=== PATIENT | female | born 1965 | race Caucasian/White ===

== ENCOUNTER → 2017-02-21 | Outpatient (CLI) | payer BC | LOC: M LAB 08:35 | PROVIDERS: ATTEND Ophthalmology | DX: Z01.818 Encounter for other preprocedural examination (principal); H02.62 Xanthelasma of right lower eyelid; H02.65 Xanthelasma of left lower eyelid ==

== ENCOUNTER → 2017-03-18 | Day surgery (SDC) | payer BC ==
--- NOTE | 2017-03-17 06:58 | HPE ---
DATE OF ADMISSION: 03/18/2017 HISTORY AND CHIEF COMPLAINT: Mrs. 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 On 12/26/2015, she had the xanthelasma removed from the left lower eyelid successfully. There has been recurrence of the xanthelasma in the left lower eyelid and new xanthelasma deposits on the right lower eyelid. She is being admitted to have the xanthelasma excised from both lower eyelids under local anesthetic with monitored sedation. PAST OCULAR HISTORY: Please see the history of present illness. Dry eye syndrome both eyes, ocular hypertension, corticosteroid responder. PAST MEDICAL HISTORY/PREOPERATIVE MEDICAL EVALUATION AND ASSESSMENT: Please see the report by Dr. Morales Villanueva. The patient was placed on low-dose statin medication to decrease the deposition of the cholesterol, which is forming the xanthelasma on the lower eyelids. MEDICATIONS: - Lipitor 10 mg daily - Epipen two pack as needed for anaphylaxis ALLERGIES: Please refer to the report by Dr. Morales Villanueva. NO KNOWN DRUG ALLERGIES. Allergic to TREE NUTS, which causes throat edema and itching. SOCIAL HISTORY: Nonsmoker. FAMILY HISTORY: Noncontributory with respect to eye disease. On examination, vision without correction: Right eye: 20/20 -1, left eye: 20/20. Intraocular pressure by Goldmann tonometry: Both eyes: 16 mmHg. External examination: Right eye: Xanthelasma deposit of lower eyelid medially measuring 25 x 6 mm in size, left eye: Xanthelasma of lower eyelid medially, two locations, smaller location medial lower eyelid 5.5 x 7 mm, larger location inferior central and medial lower eyelid 26 x 6 mm in size. Extraocular movements: Both eyes: Full, pupils: Both eyes: Round, regular and reactive to light. Slit lamp examination: Cornea: Both eyes: 1+ superficial punctate keratitis. Anterior chamber: Both eyes: Normal. Lens: Both eyes: Normal. IMPRESSION: 1. Xanthelasma of lower eyelids both eyes. 2. Recurrent xanthelasma left lower eyelid. 3. New xanthelasma right lower eyelid. PLAN: I discussed the findings with Mrs. David. As previous, I recommended excision of the xanthelasma of both lower eyelids. I discussed the procedure, benefit, expected outcomes, risks and alternatives to surgery. I mentioned that the risk of surgery includes but is not limited to surgery is not guaranteed, bleeding, infection, inflammation,, scarring, recurrence, lid malposition, injury to the globe or the orbit causing impaired vision and extraocular movements. Mrs. David elected to have the said surgery performed. I obtained an informed consent. I advised her to stop any aspirin type products or nonsteroidal anti-inflammatory medications [address] Morales Villanueva will recommend any other preoperative and postoperative medications. JOSE
[~2017-03-18] VITALS: Ht 170.2 cm; Wt 79.4 kg
[~2017-03-18] MED LIST: ACETAMINOPHEN TAB 650MG DOSE (2X325MG) PO PRN; ATOR1TAB19 PO; BENA25CA4 PO; BUPIVACAINE 0.75% 10 ML VIAL As Ordered ONE; CIPROFLOXACIN 0.3% OPHTH OINTMENT As Ordered ONE; D5W/0.2% SODIUM CHLORIDE 1,000 ML IV ONE; D5W/0.2% SODIUM CHLORIDE 250 ML IV ONE; EPIP0.3I2 IM; HYALURONIDASE 200 UNITS/ML VIAL (J3470) As Ordered ONE; IBUP200C PO; LIDOCAINE 2% INJ 100 MG/5 ML SDV (FOR ANES.) As Ordered ONE; LIDOCAINE W/EPINEPHRINE 1% 20ML VIAL As Ordered ONE; MIDAZOLAM INJ 2 MG/2 ML VIAL (J2250) As Ordered ONE; ONDANSETRON 4MG/2ML VIAL (J2405) As Ordered ONE; POVIDONE-IODINE 5% OPHTH PREP SOL 30ML As Ordered ONE; PROPOFOL 200 MG/20 ML VIAL As Ordered ONE; TOBRADEX OPHTH OINT 3.5 GM As Ordered ONE; dexameTHASONE 4 MG/ML 1ML VIAL (J1100) IV ONE; fentaNYL 100 MCG/2 ML INJECTION (J3010) As Ordered ONE
[2017-03-18 11:20] VITALS: BP 134/79
--- NOTE | 2017-03-18 11:46 | RO ---
DATE OF PROCEDURE: 03/18/2017 PREOPERATIVE DIAGNOSIS: Xanthelasma of both lower eyelids, right lower lid lesion measures 25 x 6 mm, left lower eyelid has two lesions, the first lesion medially measures 5.5 x 7 mm in size and the second lesion more centrally measures 26 x 6 mm in size. POSTOPERATIVE DIAGNOSIS: Xanthelasma of both lower eyelids, right lower lid lesion measures 25 x 6 mm, left lower eyelid has two lesions, the first lesion medially measures 5.5 x 7 mm in size and the second lesion more centrally measures 26 x 6 mm in size. OPERATIVE PROCEDURE: 1. Excision of xanthelasma both lower eyelids. 2. Closure of wound using intermediate two-layer closure of both lower eyelids. SURGEON: Dandre Davis MD SILK SCREEN PROCESSOR: ANESTHESIA: Local with monitored sedation. DESCRIPTION OF PROCEDURE: The patient was brought into the operating room and positioned appropriately. A surgical marking pen was used to britney an incision line around the xanthelasma lesions of the right lower eyelid and the left lower eyelid. Local anesthetic consisting of Xylocaine 1% mixed 50/50 with Marcaine 0.75% with epinephrine 1:200,000 and 200 units of Vitrase per 10 mL of local anesthetic, 2.75 mL total was injected subcutaneously at the base of each of the xanthelasma lesions of both lower eyelids. The full face was prepped with Betadine and draped in the usual sterile manner. The skin incision was made with a #15 blade. Good hemostasis was ensured throughout the procedure using bipolar cautery. Sharp and blunt dissection was performed to remove the xanthelasma lesions. The subcutaneous layer was dissected 360 degrees around the incision sites of both lower eyelids. The orbicularis layer of all the site was closed using inverted interrupted #6-0 Vicryl suture. The skin incisions were closed using interrupted #6-0 nylon suture. There were no complications during the surgery. A combination of Ciloxan ophthalmic ointment and TobraDex ophthalmic ointment was applied to the incisions and the sutures. Cold saline compresses were placed over both eyes. There are no complications during the surgery. Specimens were sent to pathology. The patient left the recovery room in good condition. JOSE
== END | disposition home or self-care (01) ==
LOC: M SDC 07:54
PROVIDERS: ATTEND Ophthalmology
DX: H02.62 Xanthelasma of right lower eyelid (principal); E78.00 Pure hypercholesterolemia, unspecified; R29.898 Other symptoms and signs involving the musculoskeletal system; Z91.09 Other allergy status, other than to drugs and biological substances; Z79.899 Other long term (current) drug therapy; Z90.710 Acquired absence of both cervix and uterus
CPT/HCPCS: 12055; 67840; 88302; J1100; J2250; J2405; J3010; J3470

== ENCOUNTER → 2017-09-03 | Outpatient (CLI) | payer BC ==
[~2017-09-03] MED LIST changes: -ACETAMINOPHEN TAB 650MG DOSE (2X325MG) PO PRN; -BUPIVACAINE 0.75% 10 ML VIAL As Ordered ONE; -CIPROFLOXACIN 0.3% OPHTH OINTMENT As Ordered ONE; -D5W/0.2% SODIUM CHLORIDE 1,000 ML IV ONE; -D5W/0.2% SODIUM CHLORIDE 250 ML IV ONE; -HYALURONIDASE 200 UNITS/ML VIAL (J3470) As Ordered ONE; -IBUP200C PO; +IBUP200C10 PO; -LIDOCAINE 2% INJ 100 MG/5 ML SDV (FOR ANES.) As Ordered ONE; -LIDOCAINE W/EPINEPHRINE 1% 20ML VIAL As Ordered ONE; -MIDAZOLAM INJ 2 MG/2 ML VIAL (J2250) As Ordered ONE; -ONDANSETRON 4MG/2ML VIAL (J2405) As Ordered ONE; -POVIDONE-IODINE 5% OPHTH PREP SOL 30ML As Ordered ONE; -PROPOFOL 200 MG/20 ML VIAL As Ordered ONE; -TOBRADEX OPHTH OINT 3.5 GM As Ordered ONE; -dexameTHASONE 4 MG/ML 1ML VIAL (J1100) IV ONE; -fentaNYL 100 MCG/2 ML INJECTION (J3010) As Ordered ONE
--- NOTE | 2017-09-03 09:57 | REPMRS ---
Patient History The patient states she had a clinical breast exam in May 2017.No known family history of cancer. Digital Mammo Screening Bilat: September 03, 2017 - Exam #: [id number] Bilateral CC and MLO view(s) were taken. Technologist: Vianey Saleh Technologist Prior study comparison: August 30, 2016, bilateral digital mammo screening bilat performed at [facility]. August 25, 2015, bilateral digital mammo screening bilat performed at [facility]. FINDINGS: The breast tissue is heterogeneously dense. This may lower the sensitivity of mammography. There has been no change in the appearance of the mammogram from the prior studies. There is a moderate amount of residual fibroglandular tissue which is fairly symmetric. There is no interval development of dominant mass, areas of architectural distortion, or clustered microcalcification typical of malignancy. ASSESSMENT: BI-RADS/ACR category 1 mammogram. Negative. Recommendation Routine screening mammogram in 1 year (for women over age 40). This mammogram was interpreted with the aid of an FDA-approved computer-aided dectection system. Electronically Signed By: Renato Cruz MD 09/03/17 0957
== END ==
LOC: M RAD 08:45
PROVIDERS: ATTEND Family Medicine
DX: Z12.31 Encounter for screening mammogram for malignant neoplasm of breast (principal); R92.8 Other abnormal and inconclusive findings on diagnostic imaging of breast

== ENCOUNTER → 2018-09-09 | Outpatient (CLI) | payer BC | LOC: M RAD 07:46 | DX: Z12.31 Encounter for screening mammogram for malignant neoplasm of breast (principal) | CPT/HCPCS: 77067 ==

== ENCOUNTER → 2018-09-29 | Outpatient (REF) | payer BC ==
[~2018-09-29] MED LIST changes: -IBUP200C10 PO; +IBUP200C25 PO
[2018-10-02 14:15] LABS: PHOSPHOLIPIDS LEVEL 223 mg/dL (150-250); SSA SJOGRENS A <0.2 AI (0.0-0.9); SSB SJOGRENS B <0.2 AI (0.0-0.9)
== END ==
LOC: M LAB REF 16:44
PROVIDERS: ATTEND Family Medicine
DX: H01.132 Eczematous dermatitis of right lower eyelid (principal)

== ENCOUNTER → 2019-09-14 | Outpatient (CLI) | payer BC ==
--- NOTE | 2019-09-14 10:23 | REPMRS ---
Patient History The patient states she had a clinical breast exam in 2018. No known family history of cancer. 3D TOMOSYNTHESIS WAS PERFORMED. The [employer] lifetime risk for breast cancer is 7.7%. Digital Mammo Screening Bilat: September 14, 2019 - Exam #: [id number] Bilateral CC and MLO view(s) were taken. Technologist: Mini Gruber, Technologist Prior study comparison: September 09, 2018, bilateral digital mammo screening bilat performed at [facility]. September 03, 2017, bilateral digital mammo screening bilat performed at [facility]. FINDINGS: The breast tissue is heterogeneously dense. This may lower the sensitivity of mammography. There has been no change in the appearance of the mammogram from the prior studies. There is a moderate amount of residual fibroglandular tissue which is fairly symmetric. There is no interval development of dominant mass, areas of architectural distortion, or clustered microcalcification typical of malignancy. Assessment: BI-RADS/ACR category 1 mammogram. Negative Mammogram. Recommendation Routine screening mammogram in 1 year (for women over age 40). This mammogram was interpreted with the aid of an FDA-approved computer-aided dectection system. Electronically Signed By: Renato Cruz MD 09/14/19 7022
== END ==
LOC: M RAD 09:39
PROVIDERS: ATTEND Family Medicine
DX: Z12.31 Encounter for screening mammogram for malignant neoplasm of breast (principal)

== ENCOUNTER → 2020-10-10 | Outpatient (CLI) | payer BC ==
--- NOTE | 2020-10-10 08:50 | REPMRS ---
Patient History The patient states she has not had a clinical breast exam in over a year. Family history of breast cancer at age 56 in sister. Digital Woman Screen Mammo: October 10, 2020 - Exam #: [id number] Bilateral CC and MLO view(s) were taken. Technologist: Macy Lei, Technologist Prior study comparison: September 14, 2019, bilateral digital mammo screening bilat, performed at [facility]. September 09, 2018, bilateral digital mammo screening bilat, performed at [facility]. September 03, 2017, bilateral digital mammo screening bilat, performed at [facility]. FINDINGS: The breast tissue is heterogeneously dense. This may lower the sensitivity of mammography. The Volpara volumetric breast density category is: C. There is a moderate amount of heterogeneously dense fibroglandular tissue which is fairly symmetric. There is no interval development of dominant mass, architectural distortion, or grouped microcalcification typical of malignancy. There has been no change in the appearance of the mammogram from the prior studies. 3-D tomosynthesis shows no additional findings. Assessment: BI-RADS/ACR category 1 mammogram. Negative Mammogram. Recommendation Routine screening mammogram of both breasts in 1 year (for women over age 40). This patient's [facility] Lifetime Breast Cancer RIsk is estimated at 14.8 %. This mammogram was interpreted with the aid of an FDA-approved computer-aided dectection system. Electronically Signed By: Ruben Garcia MD 10/10/20 0850
== END ==
LOC: M WHC 07:51
PROVIDERS: ATTEND Family Medicine
DX: Z12.31 Encounter for screening mammogram for malignant neoplasm of breast (principal)

== ENCOUNTER → 2021-10-11 | Outpatient (CLI) | payer BC ==
--- NOTE | 2021-10-11 14:24 | REPMRS ---
Patient History The patient states she had a clinical breast exam in May 2021. Family history of breast cancer at age 56 in sister. Tomosynthesis is performed. Volpara breast density is c. [employer] lifetime risk of breast cancer 14.5%. Patient states no breast complaints today. Patient has signed MRS History Sheet. Digital Woman Screen Mammo: October 11, 2021 - Exam #: [id number] Bilateral CC and MLO view(s) were taken. Technologist: Macy Lei, Technologist Prior study comparison: October 10, 2020, bilateral digital woman screen mammo performed at [facility]. September 14, 2019, bilateral digital mammo screening bilat, performed at [facility]. FINDINGS: The breast tissue is heterogeneously dense. This may lower the sensitivity of mammography. There has been no change in the appearance of the mammogram from the prior studies. There is a moderate amount of residual fibroglandular tissue which is fairly symmetric. There is no interval development of dominant mass, areas of architectural distortion, or clustered microcalcification typical of malignancy. Assessment: BI-RADS/ACR category 1 mammogram. Negative Mammogram. Recommendation Routine screening mammogram in 1 year (for women over age 40). This mammogram was interpreted with the aid of an FDA-approved computer-aided dectection system. Electronically Signed By: Renato Cruz MD 10/11/21 0227
== END ==
LOC: M WHC 12:36
PROVIDERS: ATTEND Family Medicine
DX: Z12.31 Encounter for screening mammogram for malignant neoplasm of breast (principal); Z80.3 Family history of malignant neoplasm of breast; R92.2 Inconclusive mammogram

== ENCOUNTER → 2021-12-25 | Outpatient (REF) | payer BC | LOC: M SFHCDERM 17:11 | PROVIDERS: ATTEND Physician Assistant | DX: D22.39 Melanocytic nevi of other parts of face (principal) ==

== ENCOUNTER → 2022-10-12 | Outpatient (CLI) | payer BC | LOC: M WHC 14:07 | PROVIDERS: ATTEND Family Medicine | DX: Z12.31 Encounter for screening mammogram for malignant neoplasm of breast (principal) ==

== ENCOUNTER → 2023-05-21 | Outpatient (REF) | payer BC ==
[2023-05-21 17:09] LABS: APPEARANCE, URINE CLOUDY (CLEAR); BACTERIA, URINE AUTO NEGATIVE (NEGATIVE); BILIRUBIN, URINE AUTO NEGATIVE (NEGATIVE); BLOOD, URINE BLOOD 2+ (NEGATIVE); COLOR, URINE YELLOW (YELLOW); GLUCOSE, URINE (UA) AUTO NEGATIVE (NEGATIVE); KETONE, URINE AUTO TRACE mg/dL (NEGATIVE); LEUKOCYTE ESTERASE, URINE AUTO 3+ (NEGATIVE); MUCUS, URINE SMALL (NEGATIVE); NITRITE, URINE AUTO NEGATIVE (NEGATIVE); PROTEIN, URINE AUTO 1+ mg/dL (NEGATIVE); RBC, URINE AUTO 53 /HPF (0-3); SPECIFIC GRAVITY URINE AUTO 1.024 (1.002-1.035); SQUAMOUS EPITHELIAL CELL UR AU 8 /HPF (0-6); UROBILINOGEN, URINE AUTO 0.2 mg/dL (0.0-2.0); WBC, URINE AUTO TNTC /HPF (0-3)
== END ==
LOC: M LAB REF 16:25
PROVIDERS: ATTEND Physician Assistant Medical
DX: N39.0 Urinary tract infection, site not specified (principal)

== ENCOUNTER → 2023-10-16 | Outpatient (CLI) | payer BC | LOC: M WHC 07:26 | PROVIDERS: ATTEND Family Medicine | DX: Z12.31 Encounter for screening mammogram for malignant neoplasm of breast (principal); R92.323 Mammographic fibroglandular density, bilateral breasts ==

== ENCOUNTER → 2024-10-21 | Outpatient (CLI) | payer BC | LOC: M WHC 07:26 | PROVIDERS: ATTEND Family Medicine | DX: Z12.31 Encounter for screening mammogram for malignant neoplasm of breast (principal); R92.333 Mammographic heterogeneous density, bilateral breasts ==

== ENCOUNTER → 2025-05-27 | Outpatient (REF) | payer BC ==
[2025-05-27 16:08] LABS: EOSINOPHILS 2 % (0-3); LYMPHOCYTES 72 % (16-44); NEUTROPHILS 26 % (28-66)
[2025-05-27 16:10] LABS: PLATELET ESTIMATE NORMAL (NORMAL)
== END ==
LOC: M LAB REF 14:32
PROVIDERS: ATTEND Family Medicine
DX: D72.820 Lymphocytosis (symptomatic) (principal)

== ENCOUNTER → 2025-05-31 | Outpatient (REF) | payer BC ==
[2025-05-31 20:09] LABS: EOSINOPHILS 1 % (0-3); LYMPHOCYTES 63 % (16-44); MONOCYTES 5 % (0-5); NEUTROPHILS 31 % (28-66)
[2025-05-31 20:10] LABS: PLATELET ESTIMATE NORMAL (NORMAL)
== END ==
LOC: M LAB REF 17:37
PROVIDERS: ATTEND Family Medicine
DX: D72.820 Lymphocytosis (symptomatic) (principal)